=== PATIENT | male | born 1985 | race Caucasian/White ===

== ENCOUNTER 2018-10-18 13:23 | Inpatient (IN) | payer OTHER ==
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
[2018-10-18 13:53] LABS: PLATELET COUNT 278 10^3/uL (150-400)
[2018-10-18 14:02] LABS: INR 1.17 (0.83-1.16); PROTIME(PATIENT) 15.1 SEC (12.0-15.0)
[2018-10-18] MEDS ORDERED: NS 2,000 ML IV ONE (14:02)
[2018-10-18] MEDS ORDERED: LORazepam 2 MG/ML INJ IVP ONE (14:26)
[2018-10-18] MEDS ORDERED: NALOXONE HCL 0.4 MG/ML INJ IVP PRN (15:10)
[2018-10-18] MEDS ORDERED: ONDANSETRON 4 MG/2 ML VIAL IVP PRN (15:10)
[2018-10-18] MEDS ORDERED: LORazepam 2 MG/ML INJ IVP PRN (15:10)
[2018-10-18] MEDS ORDERED: HYDROmorphONE/DILAUDID 1 MG/ML INJ IVP PRN (15:13)
[2018-10-18] MEDS: NS 1,000 ML IV SCH ×2 (15:35→18:22)
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
--- NOTE | 2018-10-18 22:37 | TRAUMAPN ---
Trauma Progress Note Assessment/Plan: was called to bedside to see if collar could be cleared as is now alert and oriented No pain with palpation or moving head up and down. Pain when moving head to left. Tender by occiput Will keep collara on tonight No history of seizures No home medications Pain by wrist, laceration approximated Objective: Vital Signs Temp Pulse Resp BP Pulse Ox 37.5 C 69 17 97/60 L 100 10/18/18 20:00 10/18/18 20:00 10/18/18 20:00 10/18/18 20:00 10/18/18 20:00 PT 15.1 SEC (12.0-15.0) H 10/18/18 13:35 INR 1.17 (0.83-1.16) H 10/18/18 13:35
[2018-10-18] MEDS ORDERED: oxyCODONE IR 5 MG TAB PO PRN (22:39)
[2018-10-18] MEDS: ACETAMINOPHEN 325 MG TAB PO PRN (23:06)
[2018-10-19] MEDS: NS 1,000 ML IV SCH (04:29)
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
[2018-10-19] MEDS: IBUPROFEN 600 MG TAB PO PRN (15:23)
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
[2018-10-19] MEDS: BACITRACIN OINTMENT 1 PACKET TP SCH (20:59)
[2018-10-20] MEDS: BACITRACIN OINTMENT 1 PACKET TP SCH ×3 (04:37→20:35)
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
[2018-10-20] MEDS: IBUPROFEN 600 MG TAB PO PRN (15:43)
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
[2018-10-21] MEDS: BACITRACIN OINTMENT 1 PACKET TP SCH ×2 (09:43→23:53)
--- NOTE | 2018-10-21 10:52 | CPEKG ---
Test Reason : OPEN Blood Pressure : / mmHG Vent. Rate : 104 BPM Atrial Rate : 103 BPM P-R Int : 134 ms QRS Dur : 116 ms QT Int : 365 ms P-R-T Axes : 081 091 076 degrees QTc Int : 481 ms Sinus tachycardia Nonspecific intraventricular conduction delay Confirmed by Home Anaya ([id number]) on 10/21/2018 10:52:32 AM Referred By: Confirmed By:Home Anaya
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
--- NOTE | 2018-10-21 15:28 | ASMTCMCOM ---
CM Note CM Note Notes: Pt does not meet criteria for [facility] inpatient rehab-rec outpatient services. [facility] eval pt who does not require psychiatric hospitalization. FC reports pt primary for hospital will be [facility] insurance , pt has to file claim. Pt has [facility] plan, this will be for and post d/c needs. D/c plan of care: Pt to d/c independently and return to [place] with parents. Date Signed: 10/21/2018 03:27 PM Electronically Signed By:GERARDO Rodriguez
[2018-10-22 07:20] VITALS: BP 116/71
[2018-10-22] MEDS: BACITRACIN OINTMENT 1 PACKET TP SCH (08:13)
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
[2018-10-22] MEDS: ACETAMINOPHEN 325 MG TAB PO PRN (10:48)
== END 2018-10-22 10:58 | disposition home or self-care (01) | DRG 200 ==
LOC: OBSVTOIN 15:13 → F2N 17:44 → F3N 10-19 14:29 → F3E 10-21 15:55
PROVIDERS: ADMIT Surgery; ATTEND Surgery
PROC: 0HQEXZZ Repair Left Lower Arm Skin, External Approach (ICD-10-PCS; principal; 2018-10-18)
DX: S27.0XXA Traumatic pneumothorax, initial encounter (principal); R56.1 Post traumatic seizures; S61.512A Laceration without foreign body of left wrist, initial encounter; S51.812A Laceration without foreign body of left forearm, initial encounter; V48.5XXA Car driver injured in noncollision transport accident in traffic accident, initial encounter; Y92.413 State road as the place of occurrence of the external cause; E86.9 Volume depletion, unspecified; R40.2431 Glasgow coma scale score 3-8, in the field [EMT or ambulance]; M25.561 Pain in right knee
CPT/HCPCS: 80305; 82435-PO; 82565-PO; 82947-PO; 84132-PO; 84295-PO; 84520-PO; 85014-PO; 92507-GN; 92523-GN; 96374; 97116-GP; 97162-GP; 97166-GO; 97530-GP; 97535-GO; G0480

== ENCOUNTER 2019-03-18 07:53 | Observation (INO) | payer OTHER ==
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
[2019-03-18] MEDS ORDERED: LR 1,000 ML IV ONE (08:01)
[2019-03-18] MEDS ORDERED: BUPIVACAINE 0.5% 30 ML SDV ONE (08:39)
[2019-03-18] MEDS ORDERED: ceFAZolin 2 GM/DEXTROSE 100 ML IV ONE (08:58)
[2019-03-18] MEDS: LIDOCAINE 1% 300 MG/30 ML SDV ONE ×2 (09:00→12:37)
--- NOTE | 2019-03-18 09:07 | PDHPUP ---
History & Physical Update H&P update statement: This history and physical update is based on an assessment of the patient which was completed after admission or registration (within 24 hours), but prior to the surgery/procedure. H&P update: H&P reviewed & patient examined (Patient will need to be admitted to the hospital overnight as he does not have anyone to drive him home or care for him at home after surgery. If he is stable, we anticipate we can discharge him home tomorrow. )
[2019-03-18] MEDS ORDERED: CEFAZOLIN 2 GM/DEXTROSE/100 ML BAG IV ONE (09:11)
[2019-03-18] MEDS ORDERED: oxyCODONE IR 5 MG TAB PO PRN (09:12)
[2019-03-18] MEDS ORDERED: HYDROmorphONE/DILAUDID 1 MG/ML INJ IVP PRN ×2 (09:12→12:39)
[2019-03-18] MEDS ORDERED: MIDAZOLAM 2 MG/2 ML VIAL ONE (09:12)
[2019-03-18] MEDS ORDERED: MIDAZOLAM 2 MG/2 ML VIAL IVP ONE (09:12)
[2019-03-18] MEDS ORDERED: ACETAMINOPHEN 325 MG TAB PO PRN (09:12)
[2019-03-18] MEDS ORDERED: ONDANSETRON 4 MG/2 ML VIAL IVP PRN (09:12)
--- NOTE | 2019-03-18 09:13 | PDANEPAE ---
ANE Past Medical History - Cardiovascular History Hx Hypertension: No Hx Arrhythmias: No Hx Chest Pain: No Hx Coronary Artery / Peripheral Vascular Disease: No Hx CHF / Valvular Disease: No Hx Palpitations: No Cardiovascular History Comment: unkown - Pulmonary History Hx COPD: No Hx Asthma/Reactive Airway Disease: No Hx Recent Upper Respiratory Infection: No Hx Oxygen in Use at Home: No Hx Sleep Apnea: No Pulmonary History Comment: unkown - Neurologic History Hx Cerebrovascular Accident: No Hx Seizures: No Hx Dementia: No Neurologic History Comment: no LOC noted - Endocrine History Hx Diabetes: No - Renal History Hx Renal Disorders: No Renal History Comment: hematuria - Liver History Hx Hepatic Disorders: No - Neurological & Psychiatric Hx Hx Neurological and Psychiatric Disorders: No - Cancer History Hx Cancer: No - Congenital Disorder History Hx Congenital Disorders: No - GI History Hx Gastrointestinal Disorders: No - Surgical History Prior Surgeries: right arm ANE Review of Systems Review of Systems: - Exercise capacity METS (RN): 6 METS ANE Patient History - Allergies Allergies/Adverse Reactions: No Known Allergies Allergy (Verified 10/18/18 17:51) - NPO status NPO Since - Liquids (Date): 03/17/19 NPO Since - Liquids (Time): 23:00 NPO Since - Solids (Date): 03/17/19 NPO Since - Solids (Time): 23:00 - Smoking Hx Smoking Status: Unknown if ever smoked - Family Anes Hx Family Hx Anesthesia Complications: none ANE Labs/Vital Signs - Vital Signs Blood Pressure: 127/84 Heart Rate: 56 Respiratory Rate: 16 O2 Sat (%): 99 Height: 180.34 cm Weight: 70.632 kg ANE Physical Exam - Airway Neck exam: FROM Mallampati Score: Class 1 Mouth exam: normal dental/mouth exam - Pulmonary Pulmonary: no respiratory distress - Cardiovascular Cardiovascular: regular rate and rhythym - ASA Status ASA Status: I ANE Anesthesia Plan Anesthesia Plan: GA w LMA
[2019-03-18] MEDS ORDERED: LIDOCAINE 2% 5 ML SDV ONE (09:25)
[2019-03-18] MEDS ORDERED: PROPOFOL/EMULSION 500 MG/50 ML BOTTLE IV ONE (09:25)
[2019-03-18] MEDS ORDERED: fentaNYL 250 MCG/5 ML INJ ONE (09:25)
[2019-03-18] MEDS ORDERED: ROCURONIUM 50 MG/5 ML VIAL ONE (11:04)
[2019-03-18] MEDS ORDERED: DEXAMETHASONE 4 MG/ML VIAL ONE (11:04)
[2019-03-18] MEDS ORDERED: ONDANSETRON 4 MG/2 ML VIAL ONE (11:04)
[2019-03-18] MEDS ORDERED: NEOSTIGMINE METHYLSULFATE 10 MG/10 ML MDV ONE (11:51)
[2019-03-18] MEDS ORDERED: GLYCOPYRROLATE 0.2 MG/1 ML VIAL ONE ×2 (11:51)
[2019-03-18] MEDS ORDERED: ROPIVACAINE HCL 150 MG/30 ML INJ ONE (12:33)
[2019-03-18] MEDS ORDERED: HYDROmorphONE/DILAUDID 2 MG/ML INJ ONE (12:35)
[2019-03-18] MEDS ORDERED: HYDROCODONE/APAP 5/325 TAB PO PRN (12:39)
[2019-03-18] MEDS ORDERED: fentaNYL 100 MCG/2 ML INJ IVP PRN (12:39)
[2019-03-18] MEDS ORDERED: NALOXONE HCL 0.4 MG/ML INJ IVP PRN (12:39)
[2019-03-18] MEDS ORDERED: PROMETHAZINE HCL 25 MG/ML INJ IVP PRN (12:39)
--- NOTE | 2019-03-18 12:56 | POSTANESTH ---
Post Anesthetic Evaluation Cardiovascular Status: Normal, Stable Respiratory Status: Normal, Stable Level of Consciousness/Mental Status: Can Participate in Eval Pain Control: Adequate, Prn Tx Ordered Nausea/Vomiting Control: Adequate, Prn Tx Ordered Complications Possibly Related to Anesthesia: None Noted
[2019-03-18] MEDS ORDERED: oxyCODONE IR 5 MG TAB ONE (13:35)
[2019-03-18] MEDS: oxyCODONE IR 5 MG TAB PO PRN (20:30)
--- NOTE | 2019-03-18 21:54 | GOP ---
[f rep st] OPERATIVE REPORT PATIENT: OLAYINKA PICKENS DATE OF SERVICE: 03/18/19 PATIENT DATE OF : 1985 SURGEON: Carl Perez M.D. [employer] GUIDE: Josette Zavala PA-C Mrs. Miner assistance was medically necessary for patient positioning and the retraction of vital structures. ANESTHESIA: General / Regional anesthesia by surgeon PRE-OPERATIVE DIAGNOSES: Right distal radius fracture (ICD-10 code S52.121A right distal radius fracture ) Right distal radio-ulnar joint instability (ICD-10 code S63.014S right distal radio-ulnar joint instability) Right elbow instability (ICD-10 code S53.104S right elbow instability) POST-OPERATIVE DIAGNOSES: Right distal radius fracture (ICD-10 code S52.121A right distal radius fracture ) Right distal radio-ulnar joint instability (ICD-10 code S63.014S right distal radio-ulnar joint instability) Right wrist loose body (ICD-10 code M24.031 right wrist loose body) Right elbow instability (ICD-10 code S53.104S right elbow instability) OPERATIVE PROCEDURES: CPT code 59828 Right distal radius open reduction and internal fixation CPT code 39795 -- Right distal radio-ulnar joint arthrotomy with TFCC repair CPT code 34488 -- Right wrist removal of a loose body CPT code 44878 Right wrist incision of an extensor tendon sheath CPT code 88214 Anterior interosseous nerve neurectomy CPT code 04855 Posterior interosseous nerve neurectomy CPT code 81974 Fluoroscopy by surgeon, up to one hour CPT code 15774 -- Right elbow manipulation under anesthesia CPT code 98235 Application of a long-arm splint Modifier 47 Regional anesthesia by surgeon Modifier 22 Increased procedural services EBL: 3cc COMPLICATIONS: None TOURNIQUET TIME: 120 minutes at 250 mm Hg IMPLANTS: Synthes three-hole diagonal dorsal radial column VA locking distal radius plate, Synthes right intermediate column plate, 2.4mm locking and non- locking screws BRIEF CLINICAL NOTE: This is a very pleasant 33 year old male with a significant history for a right distal radius fracture (comminuted, displaced, intra-articular) with associated distal radio-ulnar joint instability as well as right elbow instability following an open dislocation. As such, I discussed the risks, benefits, alternatives, and complications associated with both non- operative (specifically, observation, splinting, closed reduction and splinting ) and operative (specifically, right distal radius open reduction and internal fixation with possible right distal radio-ulnar joint open reduction and internal fixation and right elbow manipulation under anesthesia) forms of treatment. The patient fully understood the risks, benefits, alternatives, and complications associated with both forms of treatment and wished to proceed with operative intervention as outlined above. The patient has signed the informed consent form for surgery. OPERATIVE NOTE: On the day of surgery, all of the patients questions were answered. The patient was then transferred from the pre-operative area into the operating room and a formal, Time-Out procedure was performed. The patient was identified by name, medical record number, social security number, and date of In addition, the patients right upper extremity was identified as the correct portion of the patients body for surgery with the patients right wrist and right elbow being identified as the correct portions of that extremity for surgery. The anesthesia team administered pre-operative antibiotics for prophylaxis. The brachium was padded with webril and an 18- inch tourniquet was applied. The extremity was then prepped and draped in the normal sterile fashion. The right elbow was then manipulated to assess for instability. Range of motion testing demonstrated a extension-flexion arc from 30-90 degrees and a supination-pronation arc from 10-60 degrees. The elbow was stable to varus and valgus stress testing within the confines of the above passive range of motion. A sterile marking pen was used to tomás out a dorsal longitudinal incision overlying the 3-4 interval. An Esmarch was then utilized to exsanguinate the upper extremity and the tourniquet was inflated to 250mm Hg. Dorsal wrist incision A number 15 blade was then used to incise the skin overlying the dorsal wrist. Meticulous hemostasis was obtained in the subcutaneous plane. Superficial sensory nerve branches were identified and protected. The extensor retinaculum was incised at the 3-4 interval. The contents of the first, second, third, and fourth dorsal compartments were identified and protected. The posterior interosseous nerve was identified in the floor of the fourth dorsal compartment and a 1cm segment was resected with bipolar cautery to prevent the possibility of neuroma formation (posterior interosseous nerve neurectomy). The periosteum overlying the dorsal distal radius was then split longitudinally and elevated both radially and ulnarly to expose the dorsal fracture fragments which extended into the distal radio-ulnar joint. A ligament sparing Mohan capsulotomy was created to provide access to the articular surface of the distal radius and the distal radio-ulnar joint. There was a multitude of small articular fracture fragments. Each fragment was carefully reduced and temporarily held in place with C-wires. This portion of the procedure required significantly more time than is typical due to the complex nature of the fracture pattern. A Synthes 2.4mm diagonal dorsal radial column VA locking plate was applied to the radial column and a Synthes 2.4mm right dorsal intermediate column VA locking plate was applied to the intermediate column. Both plates were temporarily held in place with C-wires. PA, lateral, and oblique C-arm images demonstrated appropriate plate positioning in all views. Both plates were then permanently fixed with 2.4mm non-locking screws proximally and 2.4mm locking screws distally. All C-wires were then removed and final PA, lateral, and oblique C-arm images were obtained which demonstrated excellent reduction of all dorsal fragments as well as appropriate implant positioning and length in all views. Of note, there was a large fragment of bone visualized along the volar joint line. These images were printed and saved. The dorsal wound was copiously irrigated with sterile normal saline. The extensor pollicis longus was transposed into a radialized and subcutaneous position. The extensor retinaculum was re-approximated with 3-0 vicryl sutures , the subcutaneous plane was re-approximated with 3-0 vicryl sutures, and the skin was re-approximated with a running 4-0 monocryl subcuticular stitch. Attention was then turned to the volar wrist. Volar wrist incision A sterile marking pen was used to tomás out volar longitudinal incision overlying the FCR tendon sheath. A number 15 blade was used to incise the skin. Meticulous hemostasis was obtained in the subcutaneous plane. The FCR, median nerve, FPL, the radial artery and the superficial branch of the radial sensory nerve were all identified and protected. The FCR sheath was longitudinally incised and the FCR tendon was retracted ulnarly. The pronator quadratus was released off of the radial border of the volar surface of the distal radius. The anterior interosseous nerve was identified proximally as it entered the pronator quadratus and a one centimeter segment was resected to prevent the possibility of neuroma formation (anterior interosseous nerve neurectomy). The volar fragment was identified along the lunate facet and the sigmoid notch. The fragment was carefully extricated from the wound and examined on the back table. The fragment was severely damaged but appeared to represent a component of the lunate facet and the sigmoid notch. The fragment was not salvageable so it was not re-inserted. Intra-operative C-arm fluoroscopy was then utilized in the PA and lateral planes. All images demonstrated removal of the fragment. Range of motion testing demonstrated significantly improved passive wrist extension following the fragment excision. The volar wound was then copiously irrigated with sterile normal saline. The volar wrist capsule was re-approximated with 2-0 vicryl sutures and the pronator quadratus was repaired with 3-0 vicryl sutures. The subcutaneous plane was re-approximated with 3-0 vicryl sutures and the skin was re- approximated with a running 4-0 Monocryl. The skin was cleaned with sterile normal saline and dried. Dermabond was applied to both incisions. A mixture of 1% lidocaine and 0.5% Marcaine was utilized to perform a regional block of the operative sites. Xeroform gauze dressings were then applied followed by a dry sterile dressing and a long-arm splint. Once the splint was completely in place, the tourniquet was deflated. After complete deflation of the tourniquet, all fingers and the thumb demonstrated brisk capillary refill. The patient was then reversed from anesthesia and transferred from the operating room table to the post-operative gurney and transferred from the operating room to the post-anesthesia care unit in stable condition. POST-OPERATIVE PLAN: The patient will remain in the current splint and dressing for the next 3 days. I will see the patient back in the office in 3 days for splint removal, repeat right elbow and right wrist radiographs, and conversion into a short-arm splint to allow for early right elbow range of motion. He will remain strict NWB on his RUE. /[id number]/MODL MTDD
[2019-03-19] MEDS: oxyCODONE IR 5 MG TAB PO PRN (05:32)
[2019-03-19 07:45] VITALS: BP 119/78
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
--- NOTE | 2019-03-19 09:06 | ASMTLACE ---
DEEPAK Length of stay for Answers: 1 day current admission Acuity / Level of Answers: No Care: Did the patient have an inpatient admission? # of Emergency department Answers: 1-2 visits in the last 6 months Score: 2 Date Signed: 03/19/2019 09:05 AM Electronically Signed By:GERARDO Rodriguez
--- NOTE | 2019-03-19 09:10 | ASMTCMCOM ---
CM Note CM Note Notes: Pt came to [facility] for follow up ortho surgery. Pt was here in January after he fell hiking. No therapy evals ordered/needed. Pt medically stable for d/c. Pt plans to walk home. No CM d/c needs identified. Date Signed: 03/19/2019 09:09 AM Electronically Signed By:GERARDO Rodriguez
== END 2019-03-19 10:20 | disposition home or self-care (01) ==
LOC: FSGY 07:53 → F3E 09:12 → F3N 10:06
PROVIDERS: ADMIT Physician Assistant; ATTEND Orthopaedic Surgery Hand Surgery
DX: S52.121A Displaced fracture of head of right radius, initial encounter for closed fracture (principal); S63.014A Dislocation of distal radioulnar joint of right wrist, initial encounter; S53.104A Unspecified dislocation of right ulnohumeral joint, initial encounter; W17.81XA Fall down embankment (hill), initial encounter; Y93.31 Activity, mountain climbing, rock climbing and wall climbing; Y92.828 Other wilderness area as the place of occurrence of the external cause
CPT/HCPCS: 25107; 25609; G0378; C1713; J0690; J1100; J1170; J2250; J2405; J2704; J2795; J3010

== ENCOUNTER 2019-03-25 09:40 | Observation (INO) | payer OTHER ==
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
[2019-03-25] MEDS ORDERED: ceFAZolin 2 GM/DEXTROSE 100 ML IV ONE (12:34)
--- NOTE | 2019-03-25 12:34 | PDHPUP ---
History & Physical Update H&P update statement: This history and physical update is based on an assessment of the patient which was completed after admission or registration (within 24 hours), but prior to the surgery/procedure. H&P update: H&P reviewed & patient examined
[2019-03-25] MEDS ORDERED: BACITRACIN 50,000 UNITS/10 ML SYR IRR ONE (12:44)
[2019-03-25] MEDS ORDERED: POLYMYXIN B SULFATE 500,000 UNIT/10 ML SYR IRR ONE (12:44)
[2019-03-25] MEDS ORDERED: LR 1,000 ML IV ONE (12:50)
[2019-03-25] MEDS ORDERED: MIDAZOLAM 2 MG/2 ML VIAL IVP ONE (13:07)
--- NOTE | 2019-03-25 13:07 | PDANEPAE ---
ANE History of Present Illness right arm fx with radial nerve injury, here for radial nerve repair ANE Past Medical History - Cardiovascular History Hx Hypertension: No Hx Arrhythmias: No Hx Chest Pain: No Hx Coronary Artery / Peripheral Vascular Disease: No Hx CHF / Valvular Disease: No Hx Palpitations: No Cardiovascular History Comment: unkown - Pulmonary History Hx COPD: No Hx Asthma/Reactive Airway Disease: No Hx Recent Upper Respiratory Infection: No Hx Oxygen in Use at Home: No Hx Sleep Apnea: No Sleep Apnea Screening Result - Last Documented: Negative Pulmonary History Comment: unkown - Neurologic History Hx Cerebrovascular Accident: No Hx Seizures: No Hx Dementia: No Neurologic History Comment: no LOC noted - Endocrine History Hx Diabetes: No - Renal History Hx Renal Disorders: No Renal History Comment: hx of hematuria - Liver History Hx Hepatic Disorders: No - Neurological & Psychiatric Hx Hx Neurological and Psychiatric Disorders: No - Cancer History Hx Cancer: No - Congenital Disorder History Hx Congenital Disorders: No - GI History Hx Gastrointestinal Disorders: No - Other Health History Other Health History: none - Chronic Pain History Chronic Pain: Yes (right elbow) - Surgical History Prior Surgeries: 03/18/19 right distal radius ORIF with Master. 02/22/19 right elbow i&d with Itzel. 02/19/19 right elbow exploration and i&d with Lucio VAN Review of Systems Review of Systems: - Exercise capacity METS (RN): 6 METS ANE Patient History - Allergies Allergies/Adverse Reactions: No Known Allergies Allergy (Verified 03/21/19 17:10) - NPO status NPO Since - Liquids (Date): 03/25/19 NPO Since - Liquids (Time): 09:00 NPO Since - Solids (Date): 03/24/19 NPO Since - Solids (Time): 19:00 - Smoking Hx Smoking Status: Light smoker - Family Anes Hx Family Hx Anesthesia Complications: none ANE Labs/Vital Signs - Vital Signs Blood Pressure: 124/81 Heart Rate: 66 Respiratory Rate: 18 O2 Sat (%): 96 Height: 180.34 cm Weight: 70.632 kg ANE Physical Exam - Airway Neck exam: FROM Mallampati Score: Class 1 Mouth exam: normal dental/mouth exam - Pulmonary Pulmonary: no respiratory distress, no rales or rhonchi - Cardiovascular Cardiovascular: regular rate and rhythym, no murmur, rub, or gallop - ASA Status ASA Status: II ANE Anesthesia Plan Anesthesia Plan: GA w LMA Total IV Anesthesia: No
[2019-03-25] MEDS ORDERED: HYDROmorphONE/DILAUDID 1 MG/ML INJ IVP PRN ×2 (13:09→16:27)
[2019-03-25] MEDS ORDERED: ONDANSETRON 4 MG/2 ML VIAL IVP PRN ×2 (13:09→16:27)
[2019-03-25] MEDS ORDERED: ACETAMINOPHEN 325 MG TAB PO PRN (13:09)
[2019-03-25] MEDS ORDERED: DEXAMETHASONE 4 MG/ML VIAL ONE (13:12)
[2019-03-25] MEDS ORDERED: LIDOCAINE 2% 100 MG/5 ML SYR ONE (13:12)
[2019-03-25] MEDS ORDERED: fentaNYL 100 MCG/2 ML INJ ONE (13:14)
[2019-03-25] MEDS ORDERED: PROPOFOL 200 MG/20 ML VIAL ONE (13:14)
[2019-03-25] MEDS ORDERED: HYDROmorphONE/DILAUDID 2 MG/ML INJ ONE (13:47)
[2019-03-25] MEDS ORDERED: THROMBIN(HUM PLAS)/FIBRINOG/CA 5 ML VIAL TP ONE (14:57)
[2019-03-25] MEDS: LIDOCAINE 1% 5 ML SDV ONE ×3 (15:27→16:25)
[2019-03-25] MEDS: BUPIVACAINE 0.5% 30 ML SDV ONE ×3 (15:27→16:25)
[2019-03-25] MEDS ORDERED: LIDO/EPI 1% **for epidural** 30 ML SDV ONE ×2 (15:45→16:03)
[2019-03-25] MEDS ORDERED: BACITRACIN ZINC 0.5 OZ OINTTUBE TP ONE (16:12)
[2019-03-25] MEDS ORDERED: fentaNYL 100 MCG/2 ML INJ IVP PRN (16:27)
[2019-03-25] MEDS ORDERED: PROMETHAZINE HCL 25 MG/ML INJ IVP PRN (16:27)
[2019-03-25] MEDS ORDERED: MEPERIDINE 25 MG/0.5 ML AMP IVP PRN (16:27)
[2019-03-25] MEDS ORDERED: oxyCODONE IR 5 MG TAB PO PRN (16:27)
[2019-03-25] MEDS ORDERED: NALOXONE HCL 0.4 MG/ML INJ IVP PRN (16:27)
[2019-03-25] MEDS ORDERED: LR 500 ML IV PRN (16:27)
[2019-03-25] MEDS ORDERED: METOCLOPRAMIDE 10 MG/2 ML VIAL IVP PRN (16:27)
--- NOTE | 2019-03-25 16:56 | POSTANESTH ---
Post Anesthetic Evaluation Cardiovascular Status: Normal, Stable Respiratory Status: Normal, Stable Level of Consciousness/Mental Status: Can Participate in Eval, Alert and Oriented Pain Control: Adequate, Prn Tx Ordered Nausea/Vomiting Control: Adequate, Prn Tx Ordered Complications Possibly Related to Anesthesia: None Noted
[2019-03-25] MEDS: oxyCODONE IR 5 MG TAB PO PRN (22:15)
[2019-03-26] MEDS: oxyCODONE IR 5 MG TAB PO PRN (04:52)
[2019-03-26 08:00] VITALS: BP 120/72
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
--- NOTE | 2019-03-29 12:30 | GOP ---
[f rep st] OPERATIVE REPORT PATIENT: OLAYINKA PICKENS DATE OF SERVICE: 03/25/19 PATIENT DATE OF : 1985 SURGEON: Carl Perez M.D. SENIOR SOFTWARE QUALITY ENGINEER: Josette Zavala PA-C Mrs. Miner assistance was medically necessary for patient positioning and the retraction of vital structures. ANESTHESIA: General / regional anesthesia by surgeon PRE-OPERATIVE DIAGNOSES: Right elbow contracture (ICD-10 code M24.521 right elbow contracture) Right arm radial nerve avulsion (ICD-10 code S44.21xD right radial nerve avulsion) POST-OPERATIVE DIAGNOSES: Right elbow contracture (ICD-10 code M24.521 right elbow contracture) Right arm radial nerve avulsion (ICD-10 code S44.21xD right radial nerve avulsion) Right brachioradialis tear (ICD-10 code S56.201D right brachioradialis tear) Right brachialis tear (ICD-10 code S56.201D right brachialis tear) OPERATIVE PROCEDURES: CPT code 32683 right elbow arthrotomy with capsular excision CPT code 38269 right lateral antebrachial cutaneous nerve neuroplasty CPT code 65769 right radial nerve neuroplasty CPT code 92710 right superficial branch of the radial sensory nerve neuroplasty CPT code 34934 right posterior interosseous nerve neuroplasty CPT code 55113 debridement of bone, first 20 square cm or less CPT code 30005 right radial nerve repair with allograft nerve CPT code 79272 right superficial branch of the radial sensory nerve repair with allograft nerve CPT code 28227 right posterior interosseous nerve repair with allograft nerve CPT code 17965 right brachioradialis muscle belly repair CPT code 59564 right brachialis muscle belly repair CPT code 74652 right arm and elbow scar revision, 2.6cm to 7.5cm CPT code 01066 application of a long-arm splint EBL: 4cc COMPLICATIONS: None TOURNIQUET TIME: 118 minutes at 250 mmHg IMPLANTS: One Avance nerve graft 4-5mm in diameter by 7cm in length, one Avance nerve graft 4-5mm in diameter by 5cm in length, Evicel, 4cc BRIEF CLINICAL NOTE: This is a very pleasant 33 year old male who recently sustained a right open elbow dislocation with radial nerve avulsion. As such, I discussed the risks, benefits, alternatives, and complications associated with both non-operative (specifically, observation) and operative (specifically , right radial nerve repair and/or reconstruction) forms of treatment. The patient fully understands the risks, benefits, alternatives, and complications associated with both forms of treatment and wishes to proceed with operative intervention as outlined above. The patient has signed the informed consent form for surgery. OPERATIVE NOTE: On the day of surgery, all of the patients questions were answered. The patient was then transferred from the pre-operative area into the operating room and a formal, Time-Out procedure was performed. The patient was identified by name, medical record number, social security number, and date of . In addition, the patients right upper extremity was identified as the correct portion of the patients body for surgery with the patients right arm, elbow, and forearm being identified as the correct portions of that extremity for surgery. The anesthesia team administered pre- operative antibiotics for prophylaxis. The brachium was padded with webril and an 18-inch tourniquet was applied. The extremity was then prepped and draped in the normal sterile fashion. A sterile marking pen was then utilized to tomás out the patients previous laceration as well as an extension proximally along the lateral supracondylar ridge and an extension distally overlying the ulnar border of the brachioradialis at the proximal forearm. An Esmarch was used to exsanguinate the right upper extremity and the tourniquet was inflated to 250mm Hg. A number 15 blade was used to incise skin. The patients previous scar was excised and the pre-existing laceration was extended both proximally and distally. Meticulous hemostasis was obtained in the subcutaneous plane with bipolar cautery. The following structures were identified within a dense scar bed in the following conditions: Lateral antebrachial cutaneous nerve: intact but trapped within a dense layer of scar tissue Long head of the biceps: intact Lateral head of triceps: intact Brachialis: partial tear of muscle belly along lateral border Radial nerve: complete avulsion with proximal stump identified 5cm proximal to the lateral epicondyle Brachioradialis: partial tear of the muscle belly proximally Superficial branch of the radial sensory nerve: complete avulsion 3cm distal to the radio-capitellar joint Posterior interosseous nerve: complete avulsion 3cm distal to the radio- capitellar joint Elbow capsule: contracted anteriorly and laterally The entire wound was then sharply surgically debrided and copiously irrigated with sterile normal saline including bone, muscle, and fascia. The anterior and lateral elbow capsule was released from the distal humerus to improve elbow range of motion. The lateral antebrachial cutaneous nerve, the proximal end of the radial nerve, the superficial branch of the radial sensory nerve, and the posterior interosseous nerve were carefully released from surrounding scar tissue and moved back into their anatomic tissue planes (neuroplasties). The radial nerve, the superficial branch of the radial sensory nerve, and the posterior interosseous nerve ends were then trimmed to remove all damaged nerve tissue. The subsequent defect measured 10cm in length. As such, an Avance 4- 5mm diameter by 7cm graft and an Avance 4-5mm diameter by 5cm graft were both opened and soaked in warm normal saline. The 7cm graft was sewn to the proximal radial nerve stump with several 5-0 nylon sutures. The distal end of the 7cm graft was then sewn to one end of the 5cm graft with 5-0 nylon sutures. The distal end of the 5cm graft was then split into two separate branches by internal neurolysis. One branch of the distal graft was then sewn to the superficial branch of the radial sensory nerve with 6-0 nylon sutures and the other branch of the distal graft was sewn to the posterior interosseous nerve with 6-0 nylon sutures. A four cubic centimeter syringe of Evicel was opened and injected around each of the four repair sites. The brachialis muscle belly and the brachioradialis muscle belly were repaired with 2-0 vicryl sutures. The tourniquet was deflated at 118 minutes. After complete deflation of the tourniquet, all fingers and the thumb demonstrated brisk capillary refill. Meticulous hemostasis was obtained throughout the wound with bovie and bipolar cautery. The laceration and the incisions were re-approximated with 3-0 nylon sutures. A mixture of 1% lidocaine and 0.5% Marcaine was then utilized to perform a regional block of the operative site. Betadine soaked gauze was applied to the laceration and incisions followed by a dry sterile dressing and a long-arm splint maintaining the elbow at 90 degrees of flexion and the forearm in neutral rotation. The patient was then reversed from anesthesia and transferred from the operating room table onto the post-operative gurney and transferred from the operating room to the PACU in stable condition. POST-OPERATIVE PLAN: The patient will remain in the current splint and dressing for the next four days. I will see the patient back in the office in four days for splint removal, conversion into a right short-arm splint, and initiation of right elbow ROM. /[id number]/MODL MTDD
== END 2019-03-26 10:15 | disposition home or self-care (01) ==
LOC: F3N 12:30 → EDSTATUS 15:30 → F3N 18:08
PROVIDERS: ADMIT Orthopaedic Surgery Hand Surgery; ATTEND Orthopaedic Surgery Hand Surgery
DX: M24.521 Contracture, right elbow (principal); S44.21XA Injury of radial nerve at upper arm level, right arm, initial encounter; S56.201A Unspecified injury of other flexor muscle, fascia and tendon at forearm level, right arm, initial encounter; W17.81XA Fall down embankment (hill), initial encounter; Y93.31 Activity, mountain climbing, rock climbing and wall climbing
CPT/HCPCS: 24006; 64708; 64912; G0378; J0690; J1100; J1170; J2001; J2250; J2704; J3010